=== PATIENT | female | born 1965 | race Caucasian/White ===

== ENCOUNTER 2024-02-06 07:26 | Day surgery (SDC) | payer OTHER ==
[~2024-02-06] VITALS: Ht 160 cm; Wt 64.4 kg
[2024-02-06] MEDS ORDERED: fentaNYL citrate 0.05 MG/ML VIAL ONE (08:33)
[2024-02-06] MEDS: fentaNYL citrate 0.05 MG/ML VIAL IVP ONE (10:07)
[2024-02-06] MEDS: LIDOCAINE 2% 100 MG/5 ML UJET TP ONE (10:18)
== END 2024-02-06 12:04 | disposition home or self-care (01) ==
LOC: MDS 07:26 → MMU 07:26 → MDS 12:04
PROVIDERS: ATTEND Internal Medicine Gastroenterology
DX: Z12.11 Encounter for screening for malignant neoplasm of colon (principal); K63.5 Polyp of colon; K57.30 Diverticulosis of large intestine without perforation or abscess without bleeding; Z80.0 Family history of malignant neoplasm of digestive organs; E03.9 Hypothyroidism, unspecified; E78.00 Pure hypercholesterolemia, unspecified; F41.9 Anxiety disorder, unspecified; Z79.899 Other long term (current) drug therapy
CPT/HCPCS: 45385; J3010